=== PATIENT | female | born 1975 | race Caucasian/White ===

== ENCOUNTER 2024-02-13 12:48 | Outpatient (OUT) | payer MEDICAID, SELFPAY ==
[2024-02-13 13:13] LABS: Basophils Percent Auto 0.7 % (0.2-2.0); Eosinophils Absolute Auto 0.1 10^3/uL (0.0-0.7); Eosinophils Percent Auto 1.5 % (0.9-7.0); Hematocrit 42.2 % (36.0-48.0); Hemoglobin 14.2 g/dL (12.0-16.0); Immature Granulocytes Abs Auto 0.02 10^3/uL (0.00-0.03); Immature Granulocytes Pct Auto 0.3 % (0.0-0.5); Lymphocytes Absolute Auto 2.2 10^3/uL (1.2-3.8); Lymphocytes Percent Auto 36.7 % (20.5-60.0); Mean Corpuscular HGB Conc 33.6 g/dL (29.9-35.2); Mean Corpuscular Hemoglobin 28.8 pg (26.7-34.0); Mean Corpuscular Volume 85.6 fL (81.0-99.0); Mean Platelet Volume 10.1 fL (9.5-13.5); Monocytes Absolute Auto 0.3 10^3/uL (0.3-0.8); Monocytes Percent Auto 5.2 % (1.7-12.0); Neutrophils Absolute Auto 3.3 10^3/uL (1.4-6.5); Neutrophils Percent Auto 55.6 % (43.0-75.0); Platelet Count 321 10^3/uL (150-450); Red Blood Count 4.93 10^6/uL (4.20-5.40); Red Cell Distribution Width 13.2 % (11.0-15.0)
[2024-02-13 13:21] LABS: Estimated Average Glucose 117 mg/dL; Glycohemoglobin A1C 5.7 % (4.5-6.2)
[2024-02-13 13:41] LABS: Alanine Aminotransferase 19 U/L (14-59); Albumin Globulin Ratio 0.9; Albumin Level 3.7 g/dL (3.4-5.0); Alkaline Phosphatase 83 U/L (46-116); Anion Gap 12.1; Aspartate Amino Transferase 21 U/L (15-37); BUN Creatinine Ratio 11.6; Bilirubin Total 0.4 mg/dL (0.2-1.0); Calcium 9.1 mg/dL (8.5-10.1); Chloride 105 mmol/L (98-107); Chol HDL Ratio 3.9; Cholesterol 245 mg/dL (<=200); Estimated GFR (African America >60 (>=60 mL/min/1.73m^2); Estimated GFR (Non-African Ame >60 (>=60 mL/min/1.73m^2); Globulin 4.1 g/dL; Glucose 88 mg/dL (74-106); HDL Cholesterol 63 mg/dL (40-60); Potassium 4.1 mmol/L (3.5-5.1); Sodium 138 mmol/L (136-145); TSH W/ REFLEX FT4 1.547 uIU/mL (0.358-3.740); Total Protein 7.8 g/dL (6.4-8.2); Triglycerides 81 mg/dL (<=150); VLDL CHOLESTEROL 16.2 mg/dL
[2024-02-14 08:15] LABS: Vitamin B12 551 pg/mL (232-1245)
== END 2024-02-13 12:49 | disposition home or self-care (01) ==
LOC: LAB 12:53
DX: Z00.00 Encounter for general adult medical examination without abnormal findings (principal); R53.82 Chronic fatigue, unspecified
CPT/HCPCS: 36415; 80053; 80061; 82306; 82607; 83036; 84443; 85025

== ENCOUNTER 2025-01-20 12:47 | Outpatient (OUT) | payer MEDICAID, SELFPAY ==
--- OUTSIDE RECORDS SUMMARY | 2025-01-20 12:52 | XMS_ITS | CCD ---
Author Organization [facility] Inform ion Partnership [facility] Care Team Providers Care 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 Name Role Phone Christopher Basurto MD Primary Care Provider [phone] Leonard CANDY COOKER HELPER, Queenie Unavailable QUEENIE VALLE Attending Jalen VALLE, QUEENIE Attending QUEENIE Jefferson Referring MANUEL Aguayo Attending Unavailable NO PCP, NO PCP Primary Care Unavailable LAURE TAMAYO Attending Unavailable Bel Coburn DO Primary Care Provider Bel Coburn DO Attending Provider [phone] Allergies Allergy Classification Reported Allergen(s) Allergy Type Date of Onset Reaction(s) Facility (3 sources) Penicillins Drug Intolerance 4 Itching, Rash [facility] (4 sources) QUEtiapine; Translations: [QUETIAPINE] Drug Allergy 4 Anxiety, Dizziness, Headache, Photosensitivit y, Shortness of breath [facility] (1 source) Penicillin; Translations: [PENICILLIN G] Drug Allergy 4 [facility] Medications Current Medications Medication Drug Class(es) Dates Sig (Normalized) Sig (Original) ARIPiprazole 2 mg oral tablet (7 sources) Atypical Antipsychotic Start: 01-18-2024 take 1 tablet by mouth once daily ARIPiprazole (Abilify) 2 MG tablet Take 2 mg by mouth Daily 01/18/2024 Active busPIRone hydrochloride 10 mg oral tablet (8 sources) Start: 01-19-2025 take 1 tablet by mouth three times daily Buspirone 10 mg tablet Active 10 MG PO Three times daily January 19, 2025 12:00am Complies with drug therapy Start: 12-16-2023 take 1 tablet by oskar th in the morning, then take 1 tablet by mouth in the evening, then take 1 tablet by mouth at bedtime busPIRone (Buspar) 10 MG tablet Take 10 mg by mouth in the morning and 10 mg in the evening and 10 mg before bedtime. 12/16/2023 Active FLUoxetine 20 mg oral capsule (17 sources) Serotonin Reuptake Inhibitor Start: 01-19-2025 take 3 capsules by mouth once daily Fluoxetine (Prozac) 20 mg capsule Active 60 MG PO Daily January 19, 2025 12:00am Complies with drug therapy Start: 12-25-2023 End: 03-26-2024 take 1 capsule by mouth once daily FLUoxetine (PROzac) 20 MG capsule Indications: Anxiety and depression (CMS/HCC) Take 1 capsule (20 mg) by mouth Daily 90 capsule 03/27/2024 Active Start: 12-16-2023 End: 03-26-2024 take 1 capsule by mouth once daily FLUoxetine (PROzac) 40 MG capsule Indications: Anxiety and depression (CMS/HCC) Take 1 capsule (40 mg) by mouth Daily 90 capsule 03/27/2024 Active ibuprofen 800 mg oral tablet (1 source) Nonsteroidal Anti-inflammatory Drug Start: 01-19-2025 take 1 tablet by mouth three times daily Ibuprofen 800 mg tablet Active 800 MG PO Three times daily January 19, 2025 12:00am Complies with drug therapy melatonin 10 mg oral capsule (3 sources) Start: 01-19-2025 take 1 capsule by mouth once daily at bedtime as needed Melatonin 10 mg capsule Active 10 MG PO Daily at bedtime as needed January 19, 2025 12:00am Complies with drug therapy melatonin 10 MG tablet Take by mouth Active propranolol hydrochloride 10 mg oral tablet (1 source) beta-Adrenergic Ledy Start: 01-19-2025 take 1 tablet by mouth twice daily Propranolol 10 mg tablet Active 10 MG PO Twice daily January 19, 2025 12:00am Complies with drug therapy topiramate 50 mg oral tablet (2 sources) Start: 05-05-2024 take 1 tablet by mouth once daily topiramate 50 MG tablet Take 1 tablet by mouth Daily 05/05/2024 Active Problems Active Problems Problem Classification Problem Date Documented Date Episodic/Chronic Acute cerebrovascular disease (13 sources) Cerebrovascular accident; Translations: [Cerebral infarction, unspecified] 02-08-2024 Chronic Anxiety disorders (1 source) Mixed anxiety and depressive disorder; Translations: [Anxiety disorder, unspecified] 03-27-2024 Chronic Headache; including migraine (9 sources) Transformed migraine; Translations: [Intractable chronic migraine with aura and without status migrainosus (CMS/HCC)] Onset: 02-07-2024 02-07-2024 Chronic Malaise and fatigue (9 sources) Fatigue; Translations: [Chronic fatigue, unspecified] Onset: 02-07-2024 02-07-2024 Chronic Other connective tissue disease (1 source) Foot pain Onset: 01-06-2025 Episodic Other nutritional; endocrine; and metabolic disorders (2 sources) Abnormal weight gain; Translations: [Abnormal weight gain] 01-19-2025 Episodic Residual codes; unclassified (2 sources) Flushing; Translations: [Flushing] 01-19-2025 Episodic Sprains and strains (1 source) Sprain of unspecified ligament of left ankle, initial encounter; Translations: [Sprain of unspecified ligament of left ankle, initial encounter] Onset: 01-06-2025 Episodic Substance-related disorders (9 sources) Substance abuse; Translations: [Other psychoactive substance abuse, uncomplicated] 02-07-2024 Chronic Transient cerebral ischemia (11 sources) Transient cerebral ischemia; Translations: [Transient cerebral ischemic attack, unspecified] 02-08-2024 Chronic Unclassified (1 source) Chest Pain/Pressure Onset: 03-02-2024 Past or Other Problems Problem Classification Problem Date Documented Date Episodic/Chronic Cardiac and circulatory congenital anomalies (7 sources) H/O cardiac surgery; Translations: [Personal history of (corrected) congenital malformations of heart and circulatory system] Onset: 02-07-2024 02-07-2024 Episodic Nonspecific chest pain (2 sources) Chest pain, unspecified; Translations: [Chest pain] Onset: 03-02-2024 Episodic Other screening for suspected conditions (not mental disorders or infectious disease) (18 sources) Patient encounter status; Translations: [Encounter for screening mammogram for malignant neoplasm of breast] Onset: 02-07-2024 02-07-2024 Episodic Results Test Name Value Interpretation Reference Range Facil ity XR ANKLE LT MIN 3 VWSon 09-3 XR ANKLE LT MIN 3 VWS XR ANKLE LT MIN 3 VWS XR ANKLE LT MIN 3 VWS HISTORY: pain COMPARISON: None available at time of dictation. IMPRESSION: 1. No acute fracture or dislocation. 2. Small Ankle joint effusion. 3. Talar dome is preserved. 4. Ankle mortise is congruent. Finalized by Vaughn Quezada on 01/06/2025 12:34 PM Normal [facility] XR FOOT LT MIN 3 VWSon 01-06 XR FOOT LT MIN 3 VWS XR FOOT LT MIN 3 VWS History: pain Exam/Technique: AP, lateral and oblique. Comparison: None. Findings: Visualized alignment is appropriate. Joint spaces are maintained. No evidence of coalition. No evidence of acute abnormality or periosteal reaction. . IMPRESSION: Normal examination. Finalized by Jeremy Pérez MD on 01/06/2025 12:50 PM Normal [facility] CBC AND AUTO DIFFon 03-02-20 24 ABSOLUTE BASOPHIL 0.0 X10E9/L Normal 0.0-0.2 [facility] Comment on above: Performed By: #### C STAN VASQUES, 28470-2, 96059-1 #### [facility] ([id number]) [address] [place] [address] 98432 ABSOLUTE NEUTROPHIL 3.3 X10E9/L Normal 1.5-6.6 [facility] Comment on above: Performed By: #### C STAN VASQUES, 35777-3, 12095-9 #### [facility] ([id number]) [address] [place] [address] 94171 Basophils/100 WBC (Bld) 0.6 % Normal [facility] Comment on above: Performed By: #### C STAN VASQUES, 67288-7, 64315-6 #### [facility] ([id number]) [address] [place] [address] 28209 Eosinophils (Bld) [#/Vol] 0.1 10*3/uL Normal 0.0-0.4 [facility] Comment on above: Performed By: #### C STAN VASQUES, 74094-0, 71686-6 #### [facility] ([id number]) [address] [place] [address] 17283 Eosinophils/100 WBC (Bld) 1.3 % Normal [facility] Comment on above: Performed By: #### C LAYO, [facility], 62060-5, 73844-8 #### [facility] ([id number]) [address] [place] [address] 16628 Erythrocyte distribution width (RBC) [Ratio] 14.0 % Normal 11.5-15.0 [facility] Comment on above: Performed By: #### C LAYO, [facility], 34933-3, 56317-5 #### [facility] ([id number]) [address] [place] [address] 99076 Hematocrit (Bld) [Volume fraction] 40.0 % Normal 35-47 [facility] Comment on above: Performed By: #### C LAYO, [facility], 43017-1, 06604-5 #### [facility] ([id number]) [address] [place] [address] 49589 Hemoglobin (Bld) [Mass/Vol] 13.6 g/dL Normal 11.7-15.5 [facility] Comment on above: Performed By: #### Aleks VASQUES, CMP, 05673-9, 69434-4 #### [facility] ([id number]) [address] [place] [address] 18947 Lymphocytes (Bld) [#/Vol] 2.0 10*3/uL Normal 1.0-3.5 [facility] Comment on above: Performed By: #### Aleks VASQUES, CMP, 67069-0, 90056-1 #### [facility] ([id number]) [address] [place] [address] 58007 Lymphocytes/100 WBC (Bld) 34.9 % Normal [facility] Comment on above: Performed By: #### C LAYO, CMP, 61058-2, 26016-3 #### [facility] ([id number]) [address] [place] [address] 33070 MCH (RBC) [Entitic mass] 28.8 pg Normal 27-34 [facility] Comment on above: Performed By: #### C LAYO, CMP, 69032-6, 83905-8 #### [facility] ([id number]) [address] [place] [address] 86488 MCHC (RBC) [Mass/Vol] 34.0 g/dL Normal 32-36 [facility] Comment on above: Performed By: #### C LAYO, CMP, 33883-3, 14044-1 #### [facility] ([id number]) [address] [place] [address] 06842 MCV (RBC) [Entitic vol] 85 fL Normal 80-100 [facility] Comment on above: Performed By: #### C LAYO, CMP, 02911-9, 65091-0 #### [facility] ([id number]) [address] [place] [address] 84877 Monocytes (Bld) [#/Vol] 0.4 10*3/uL Normal 0-0.9 [facility] Comment on above: Performed By: #### C BCA, CMP, 29436-2, 17731-3 #### [facility] ([id number]) [address] [place] [address] 95010 Monocytes/100 WBC (Bld) 6.8 % Normal [facility] Comment on above: Performed By: #### C BCA, CMP, 54260-4, 21984-9 #### [facility] ([id number]) [address] [place] [address] 50475 Neutrophils/100 WBC (Bld) 56.4 % Normal [facility] Comment on above: Performed By: #### C BCA, CMP, 03098-5, 94562-6 #### [facility] ([id number]) [address] [place] [address] 18121 Platelet mean volume (Bld) [Entitic vol] 8.3 fL Normal 7-12 [facility] Comment on above: Performed By: #### C LAYO, CMP, 24749-8, 04950-2 #### [facility] ([id number]) [address] [place] [address] 89598 Platelets (Bld) [#/Vol] 341 10*3/uL Normal 150-450 [facility] Comment on above: Performed By: #### C BCA, CMP, 32488-3, 75304-3 #### [facility] ([id number]) [address] [place] [address] 58069 RBC COUNT 4.72 X10E12/L Normal 3.80-5.20 [facility] Comment on above: Performed By: #### C LAYO, CMP, 41481-0, 49817-6 #### [facility] ([id number]) [address] [place] [address] 87726 WBC (Bld) [#/Vol] 5.9 10*3/uL Normal 4.0-11.0 [facility] Comment on above: Performed By: #### C BCA, CMP, 15262-5, 77290-5 #### [facility] ([id number]) [address] [place] [address] 30102 COMPREHENSIVE METABOLIC PANE Kevin 03-02-2024 Albumin [Mass/Vol] 4.1 g/dL Normal 3.2-5.3 [facility] Comment on above: Performed By: #### C BCA, CMP, 48575-7, 09845-6 #### [facility] ([id number]) [address] [place] [address] ALP [Catalytic activity/Vol] 68 U/L Normal 39-130 [facility] Comment on above: Performed By: #### C BCA, CMP, 36841-0, 42879-3 #### [facility] ([id number]) [address] [place] [address] 09295 ALT [Catalytic activity/Vol] 17 U/L Normal 0-31 [facility] Comment on above: Performed By: #### C BCA, CMP, 38037-7, 47528-7 #### [facility] ([id number]) [address] [place] [address] 20621 Anion gap [Moles/Vol] 5 mmol/L Normal 5-15 [facility] Comment on above: Performed By: #### C LAYO, CMP, 37415-0, 00600-0 #### [facility] ([id number]) [address] [place] [address] [place] [address] AST [Catalytic activity/Vol] 23 U/L Normal 0-41 [facility] Comment on above: Performed By: #### C LYAO, CMP, 21691-2, 13098-9 #### [facility] ([id number]) [address] [place] [address] 31490 Bilirubin [Mass/Vol] 0.6 mg/dL Normal 0.3-1.2 [facility] Comment on above: Performed By: #### C BCA, CMP, 06305-3, 27331-6 #### [facility] ([id number]) [address] [place] [address] 30260 Calcium [Mass/Vol] 9.1 mg/dL Normal 8.5-10.5 [facility] Comment on above: Performed By: #### C BCA, CMP, 79460-1, 85192-5 #### [facility] ([id number]) [address] [place] [address] 99666 Chloride [Moles/Vol] 108 mmol/L Normal 98-109 [facility] Comment on above: Performed By: #### C STAN VASQUES, 06405-8, 87986-4 #### [facility] ([id number]) [address] [place] [address] 54765 CO2 [Moles/Vol] 21 mmol/L Low 22-32 [facility] Comment on above: Performed By: #### C STAN VASQUES, 44557-7, 66083-4 #### [facility] ([id number]) [address] [place] [address] 81934 Creatinine [Mass/Vol] 0.76 mg/dL Normal 0.40-1.00 [facility] Comment on above: Result Comment: METH OD TRACEABLE TO IDMS STANDARD Performed By: #### C STAN VASQUES, 61279-9, 38877-3 #### [facility] ([id number]) [address] [place] [address] 39632 eGFR (CKD-EPI) NON-RACE DEPENDENT >90 Normal >59 [facility] Comment on above: Result Comment: Reported eGFR is based on the CKD-EPI 2020 equation that does not use a race coefficient. Performed By: #### C STAN VASQUES, 22452-2, 75906-8 #### [facility] ([id number]) [address] [place] [address] 45529 Glucose [Mass/Vol] 88 mg/dL Normal 65-99 [facility] Comment on above: Performed By: #### C STAN VASQUES, 50710-7, 44035-5 #### [facility] ([id number]) [address] [place] [address] 71729 Potassium [Moles/Vol] 3.7 mmol/L Normal 3.5-5.0 [facility] Comment on above: Performed By: #### C STAN VASQUES, 86414-3, 20311-9 #### [facility] ([id number]) [address] [place] [address] 57077 Protein [Mass/Vol] 7.4 g/dL Normal 6.0-8.0 [facility] Comment on above: Performed By: #### C LAYO CMP, 95266-2, 58720-4 #### [facility] ([id number]) [address] [place] [address] 86240 Sodium [Moles/Vol] 134 mmol/L Normal 134-146 [facility] Comment on above: Performed By: #### C LAYO, CMP, 21651-1, 86988-0 #### [facility] ([id number]) [address] [place] [address] 24327 Urea nitrogen [Mass/Vol] 12 mg/dL Normal 5-23 [facility] Comment on above: Performed By: #### C LAYO, STAN, 99142-0, 60716-5 #### [facility] ([id number]) [address] [place] [address] 16371 Fibrin D-dimer DDU (PPP) [Ma ss/Vol]on 03-02-2024 D DIMER <150 Normal <255 [facility] Comment on above: Result Comment: Results <255 ng/mL DDU: The presence of a VTE can safely be excluded with a negative D-Dimer result and Wells score. A negative result doesn't exclude the possibility of DIC. The test be repeated along with other diagnostic tests if the patient's symptoms persist or worsen. [email or web address] Performed By: #### C LAYO, CMP, 22735-2, 99875-3 #### [facility] ([id number]) [address] [place] [address] 16733 Troponin I.cardiac High sens itivity method [Mass/Vol]on 03-02-2024 1 HOUR TROP I, HIGH SENSITIVITY 3 ng/L Normal <16 [facility] Comment on above: Performed By: #### 8 9579-7 #### [facility] ([id number]) [address] [place] [address] 94536 TROPONIN I, HIGH SENSITIVITY 3 ng/L Normal <16 [facility] Comment on above: Performed By: #### C BCA, CMP, 15358-0, 50496-2 #### [facility] ([id number]) [address] [place] [address] 35848 XR CHEST 2 VWSon 03-02-2024 XR CHEST 2 VWS XR CHEST 2 VWS XR CHEST 2 VWS Chest 2 views History: chest pain Comparison: None Impression: * No focal consolidation or pleural fluid. Grossly I cannot identify any mediastinal or hilar mass. No acute findings. Finalized by Vito Begum MD on 03/02/2024 1:01 PM Normal [facility] BI MAMMOGRAM SCREENING TOMOS YNTHESIS BILATERALon 02-20-2024 BI MAMMOGRAM SCREENING TOMOSYNTHESIS BILATERAL This is a summary report. The complete report is available in the patient's medical record. If you cannot access the medical record, please contact the sending organization for a detailed fax or copy. Examination: BI MAMMOGRAM SCREENING TOMOSYNTHESIS BILATERAL Clinical History: screening for breast cancer Technique: Screening digital mammography study of both breasts was performed with 2-D and 3-D tomosynthesis imaging. No prior study available for comparison. Findings: There is no evidence of dominant spiculated mass, grouped microcalcifications, or skin thickening which would be suggestive of malignancy. Mild scattered benign-appearing calcifications are noted bilaterally. A few benign-appearing nodular densities are noted bilaterally likely representing focal fibrocystic changes. IMPRESSION: Impression: No specific evidence of malignancy seen in either breast. BIRADS 2 - Benign DENSITY: The breasts are almost entirely fatty FOLLOW-UP: Routine Screening Mamm ELECTRONICALLY SIGNED BY: Merrill Adams M.D. Normal Not Available MLR HEMOGLOBIN A1Con 024 Glucose [Mass/Vol] 117 mg/dL [facility] HbA1c (Bld) [Mass fraction] 5.7 % 4.5 - 6.2 % [facility] Comment on above: ADA RECOMMENDED LIMI T 4.0 - 6.0 ADA THERAPEUTIC TARGET < 7.0 ACTION SUGGESTED > 7.0 [facility] Vital Signs Date Time Vital Sign Value Performing Clinician Brii reyes 01-19-2025 14:05-0400 Body height 167.64 cm Bel Almas DO Work Phone: [facility] 01-19-2025 14:05-0400 Body mass index (BMI) [Ratio] 32.1 kg/m2 Bel Almas DO Work Phone: [facility] 01-19-2025 14:05-0400 Body weight 90.26 kg Bel Almas DO Work Phone: [facility] 01-19-2025 14:05-0400 Diastolic blood pressure 66 mm[Hg] Bel Almas DO Work Phone: [facility] 01-19-2025 14:05-0400 Heart rate 67 /min Bel Almas DO Work Phone: [facility] 01-19-2025 14:05-0400 Respiratory rate 16 /min Bel Almas DO Work Phone: [facility] 01-19-2025 14:05-0400 SaO2% (BldA) [Mass fraction] 96 % Bel Almas DO Work Phone: [facility] 01-19-2025 14:05-0400 Systolic blood pressure 134 mm[Hg] Bel Almas DO Work Phone: [facility] 05-12-2024 14:51-0500 Body height 167.6 cm Queenie Matosk CANDY COOKER HELPER Work Phone: [facility] 05-12-2024 14:51-0500 Body mass index (BMI) [Ratio] 31.25 kg/m2 Queenie Valle CANDY COOKER HELPER Work Phone: [facility] 05-12-2024 14:51-0500 Body temperature 97.59 [degF] Queenie Valle CANDY COOKER HELPER Work Phone: [facility] 05-12-2024 14:51-0500 Body weight 87.82 kg Queenie Valle CANDY COOKER HELPER Work Phone: [facility] 05-12-2024 14:51-0500 Diastolic blood pressure 72 mm[Hg] Queenie Valle CANDY COOKER HELPER Work Phone: [facility] 05-12-2024 14:51-0500 Heart rate 64 /min Queenie Valle CANDY COOKER HELPER Work Phone: [facility] 05-12-2024 14:51-0500 Respiratory rate 16 /min Queenie Valle CANDY COOKER HELPER Work Phone: [facility] 05-12-2024 14:51-0500 SaO2% (BldA) [Mass fraction] 97 % Queenie Valle CANDY COOKER HELPER Work Phone: [facility] 05-12-2024 14:51-0500 Systolic blood pressure 110 mm[Hg] Queenie Valle CANDY COOKER HELPER Work Phone: [facility] 02-07-2024 15:23-0400 Body height 167.6 cm Queenie Valle CANDY COOKER HELPER Work Phone: [facility] 02-07-2024 15:23-0400 Body mass index (BMI) [Ratio] 30.67 kg/m2 Queenie Valle CANDY COOKER HELPER Work Phone: [facility] 02-07-2024 15:23-0400 Body temperature 96.8 [degF] Queenie Valle CANDY COOKER HELPER Work Phone: [facility] 02-07-2024 15:23-0400 Body weight 86.18 kg Queenie Valle CANDY COOKER HELPER Work Phone: [facility] 02-07-2024 15:23-0400 Diastolic blood pressure 84 mm[Hg] Queenie Valle CANDY COOKER HELPER Work Phone: [facility] 02-07-2024 15:23-0400 Heart rate 74 /min Queenie Valle CANDY COOKER HELPER Work Phone: [facility] 02-07-2024 15:23-0400 Respiratory rate 16 /min Queenie Valle CANDY COOKER HELPER Work Phone: [facility] 02-07-2024 15:23-0400 SaO2% (BldA) [Mass fraction] 96 % Queenie Valle CANDY COOKER HELPER Work Phone: [facility] 02-07-2024 15:23-0400 Systolic blood pressure 118 mm[Hg] Queenie Valle CANDY COOKER HELPER Work Phone: [facility] Healthcare Encounters Encounter Date Encounter Type Care Provider Facility Start: 01-19-2025 End: 01-19-2025 ambulatory Bel Coburn DO Work Phone: [facility] Work Phone: Start: 01-19-2025 End: 01-19-2025 Patient encounter procedure Bel Coburn DO -[facility] Work Phone: Start: 01-06-2025 End: 01-06-2025 Emergency department patient visit NO PCP NO PCP [facility] Start: 05-12-2024 End: 05-12-2024 Office outpatient visit 10 minutes Queenie Valle CANDY COOKER HELPER Work Phone: [facility] Comment on above: Cerebrovascular acci dent (CVA), unspecified mechanism (CMS/HCC) (Primary Dx) Start: 05-12-2024 End: 05-12-2024 ambulatory QUEENIE VALLE Not Available Start: 05-12-2024 End: 05-12-2024 Bamboo flowsheet Queenie Valle CANDY COOKER HELPER Work Phone: [facility] Start: 05-12-2024 End: 02-03-2025 Bamboo flowsheet Queenie Valle CANDY COOKER HELPER Work Phone: [facility] Start: 03-26-2024 End: 03-27-2024 Refill Fernanda Hood MA [facility] Comment on above: Anxiety and depressi on (CMS/HCC) (Primary Dx) Start: 03-02-2024 End: 03-02-2024 Emergency department patient visit MANUEL Maxi [facility] Start: 02-20-2024 End: 02-20-2024 ambulatory QUEENIE VALLE Not Available Start: 02-13-2024 End: 02-13-2024 Clinisync Result Encounter Queenie Valenzuelazpatrick CANDY COOKER HELPER Work Phone: [facility] Unsolicited Start: 02-13-2024 End: 02-13-2024 Clinisync Result Encounter Queenie Vaughntrick CANDY COOKER HELPER Work Phone: [facility] Unsolicited Start: 02-07-2024 End: 02-07-2024 Initial preventive medicine new patient 40-64yrs Queenie Vaughntrick CANDY COOKER HELPER Work Phone: [facility] Comment on above: Substance abuse (CMS /HCC) (Primary Dx); Encounter for adult wellness visit; Encounter for screening mammogram for malignant neoplasm of breast; Screening for colon cancer; Chronic fatigue; Cerebrovascular accident (CVA), unspecified mechanism (CMS/HCC); TIA (transient ischemic attack); Intractable chronic migraine with aura and without status migrainosus (CMS/HCC) Start: 02-07-2024 End: 02-07-2024 ambulatory QUEENIE VALLE Not Available Start: 02-07-2024 End: 02-07-2024 Bamboo flowsheet Queenie Valle CANDY COOKER HELPER Work Phone: [facility] Start: 02-07-2024 End: 02-07-2024 Bamboo flowsheet Queenie Valle CANDY COOKER HELPER Work Phone: [facility] Start: 02-07-2024 End: 02-07-2024 Patient encounter status Queenie Valle CANDY COOKER HELPER Work Phone: [facility] Work Phone: Procedures Date Procedure Procedure Detail Performing Clinician Start: 02-20-2024 Mammography Fernanda kerns MA Start: 02-13-2024 MLR HEMOGLOBIN A1C Marielos Valle [employer]ANDY COOKER HELPER Work Phone: Plan of Treatment Date Care Activity Detail Author Start: 03-12-2027 Screening for malign ant neoplasm of colon [facility] Start: 02-19-2025 Screening for malign ant neoplasm of breast Mammogram [facility] Start: 10-06-2024 Influenza vaccination Influenza Vacc ine (#1) [facility] Comment on above: Postponed from 12/08 (Patient Refused) Start: 08-14-2024 End: 08-14-2024 Patient encounter procedure 08/14/2024 2:30 PM EDT Office Visit [facility] [address] [place] [phone] Queenie Valle NP [address] [place] [phone] [facility] Start: 05-12-2024 End: 05-12-2024 Patient encounter procedure [facility] Comment on above: Arrived Start: 02-20-2024 End: 02-20-2024 Professional / ancillary services management 02/20/2024 3:00 PM EST Ancillary Procedure [facility] [address] [place] [phone] [facility] Start: 02-07-2024 End: 02-07-2024 Patient encounter procedure 02/07/2024 3:30 PM EDT Office Visit [facility] [address] [place] [phone] Queenie Valle NP [address] [place] [phone] Arrived [facility] Comment on above: Arrived Start: 02-07-2024 End: 02-06-2025 25-hydroxyvitamin D3 [Mass/volume] in Serum or Plasma Vitamin D 25 hydroxy Lab Routine Chronic fatigue Expected: 02/07/2024 (Approximate), Expires: 02/06/2025 [facility] Comment on above: Expected: 02/07/2024 (Approximate), Expires: 02/06/2025 Start: 02-07-2024 End: 02-06-2025 CBC W Auto Differential panel - Blood CBC and differential Lab Routine Encounter for adult wellness visit Expected: 02/07/2024 (Approximate), Expires: 02/06/2025 [facility] Comment on above: Expected: 02/07/2024 (Approximate), Expires: 02/06/2025 Start: 02-07-2024 End: 02-06-2025 Cobalamin (Vitamin B12) [Mass/volume] in Serum or Plasma Vitamin B12 Lab Routine Chronic fatigue Expected: 02/07/2024 (Approximate), Expires: 02/06/2025 [facility] Comment on above: Expected: 02/07/2024 (Approximate), Expires: 02/06/2025 Start: 02-07-2024 End: 02-06-2025 Comprehensive metabolic 2000 panel - Serum or Plasma Comprehensive metabolic panel Lab Routine Encounter for adult wellness visit Expected: 02/07/2024 (Approximate), Expires: 02/06/2025 [facility] Comment on above: Expected: 02/07/2024 (Approximate), Expires: 02/06/2025 Start: 02-07-2024 End: 02-06-2025 Hemoglobin A1c/Hemoglobin.total in Blood Hemoglobin A1c Lab Routine Encounter for adult wellness visit Expected: 02/07/2024 (Approximate), Expires: 02/06/2025 [facility] Comment on above: Expected: 02/07/2024 (Approximate), Expires: 02/06/2025 Start: 02-07-2024 End: 02-06-2025 Lipid 1996 panel - Serum or Plasma Lipid panel Lab Routine Encounter for adult wellness visit Expected: 02/07/2024 (Approximate), Expires: 02/06/2025 [facility] Comment on above: Expected: 02/07/2024 (Approximate), Expires: 02/06/2025 Start: 02-07-2024 End: 04-08-2025 MG Breast - bilateral Screening Bilateral screening mammogram Imaging Routine Encounter for screening mammogram for malignant neoplasm of breast Expected: 02/07/2024, Expires: 04/08/2025 [facility] Comment on above: Expected: 02/07/2024 , Expires: 04/08/2025 Start: 02-07-2024 End: 02-06-2025 Noninvasive colorectal cancer DNA and occult blood screening [Presence] in Stool Cologuard colon cancer screening Lab Routine Screening for colon cancer Expected: 02/07/2024 (Approximate), Expires: 02/06/2025 [facility] Comment on above: Expected: 02/07/2024 (Approximate), Expires: 02/06/2025 Start: 02-07-2024 End: 02-06-2025 TSH W/REFLEX TO FT4 TSH W/REFLEX TO FT4 Lab Routine Encounter for adult wellness visit Expected: 02/07/2024 (Approximate), Expires: 02/06/2025 [facility] Work Phone: Comment on above: Expected: 02/07/2024 (Approximate), Expires: 02/06/2025 Start: 12-09-2023 Influenza vaccination Influenza Vacc ine (#1) [facility] Start: 2015 Screening for malign ant neoplasm of breast Mammogram [facility] Start: 10-25-2005 Screening for malign ant neoplasm of cervix [facility] Start: 10-25-1996 Screening for malign ant neoplasm of cervix Pap Smear [facility] Start: 1975 Screening for malign ant neoplasm of colon [facility] Comprehensive metabo lic 2000 panel - Serum or Plasma [facility] Estradiol (E2) [Mass/volume] in Serum or Plasma [facility] Progesterone [Mass/volume] in Serum or Plasma [facility] Payers Date Payer Category Payer Medicaid [employer] [facility] MEDICAID [place] [id number] 2023 Medicaid [id number] 1975 Unknown [id number] 1975 Unknown [id number] 1975 Unknown [id number] 1975 Unknown [id number] 1975 Unknown [id number] Social History Date Type Detail Facility [facility] consumption [facility] Start: 1975 Sex assigned at Not on file [facility] Start: 02-07-2024 End: 05-09-2024 Gender identity Not on file [facility] Start: 02-07-2024 End: 01-19-2025 Tobacco smoking status [facility] Never smoked tobacco [facility] Start: 02-07-2024 Tobacco use and exposure Smokeless tobacco non-user [facility] Start: 02-07-2024 End: 05-12-2024 Alcoholic beverage intake Ex-drinker (finding) [facility] Start: 02-07-2024 End: 05-09-2024 History of Social function [facility] How often do you nee d to have someone help you when you read instructions, pamphlets, or other written material from your doctor or pharmacy [SILS] Never [facility] Do you belong to any clubs or organizations such as amish groups, unions, fraternal or athletic groups, or school groups? Yes [facility] Are you now , , , , never or living with a partner? [facility] How often to you hav e a drink containing alcohol? Never [facility] How hard is it for y ou to pay for the very basics like food, housing, medical care, and heating Somewhat hard [facility] Do you feel stress - tense, restless, nervous, or anxious, or unable to sleep at night because your mind is troubled all the time - these days [OSQ] Rather much [facility] (I/We) worried wheth er (my/our) food would run out before (I/we) got money to buy more. Never true [facility] In the past 12 month s, was there a time when you were not able to pay the mortgage or rent on time? No [facility] Sex Female (finding) [facility] Start: 1975 Sex Assigned At Female [facility] Clinical Notes 02-07-2024 to 05-12-2024 Queenie Valle NP - 05/12/2024 3:23 PM Suleiman Valle NP - 05/12/2024 3:00 PM ESTPatient InstructionsTelephone Encounter - Fernanda Hood MA - 03/26/2024 10:22 AM EST Note Date & Type Note Facility 05-12-2024 History of Presen t illness Narrative Associated Problem(s): Stroke (CMS/HCC) Was scheduled to see Dr. Valiente, but previous physician did not send MRI; Rescheduled her appt. States she will call to reschedule appt soon. Images from the original note were not included. Subjective Patient ID: Sonja Briceno is a 48 y.o. female who presents for Follow-up. HPI Hx of CVA: Was scheduled to see Dr. Valiente, but previous physician did not send MRI; Rescheduled her appt. States she will call to reschedule appt soon. Reports she is sleeping better since last OV. 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 Has not made an appt with an MASTER TAX ADVISOR yet- but plans to very soon. Was seen at Urgent care for shingles 1 month ago. Was treated with Valacyclovir. Reports has since cleared. Offers no concerns or complaints today. Review of Systems Constitutional: Negative for activity change, appetite change, chills, fatigue, fever, night sweats and unexpected weight change. HENT: Negative for congestion, ear pain, rhinorrhea, sinus pressure, sinus pain, sore throat, trouble swallowing and voice change. Eyes: Negative for discharge and visual disturbance. Respiratory: Negative for chest tightness, shortness of breath and wheezing. Cardiovascular: Negative for chest pain, palpitations and leg swelling. Gastrointestinal: Negative for abdominal distention, abdominal pain, blood in stool, constipation, diarrhea, nausea and vomiting. Genitourinary: Negative for difficulty urinating, dysuria, flank pain, hematuria and pelvic pain. Musculoskeletal: Negative for arthralgias, joint swelling and neck pain. Skin: Negative for rash and wound. Neurological: Negative for dizziness, tremors, syncope, weakness, light-headedness, numbness and headaches. Psychiatric/Behavioral: Negative for sleep disturbance and suicidal ideas. The patient is not nervous/anxious. Hematological: Does not bruise/bleed easily. Endocrine: Negative for cold intolerance, heat intolerance, polydipsia, polyphagia and polyuria. Objective Physical Exam Vitals reviewed. Constitutional: Appearance: Normal appearance. HENT: Right Ear: Tympanic membrane normal. Left Ear: Tympanic membrane normal. Nose: Nose normal. Mouth/Throat: Mouth: Mucous membranes are moist. Pharynx: Oropharynx is clear. Eyes: Pupils: Pupils are equal, round, and reactive to light. Cardiovascular: Rate and Rhythm: Normal rate and regular rhythm. Pulses: Normal pulses. Heart sounds: Normal heart sounds. Pulmonary: Effort: Pulmonary effort is normal. Breath sounds: Normal breath sounds. Abdominal: General: Abdomen is flat. Bowel sounds are normal. Palpations: Abdomen is soft. Musculoskeletal: General: Normal range of motion. Skin: General: Skin is warm and dry. Capillary Refill: Capillary refill takes less than 2 seconds. Neurological: Mental Status: She is alert and oriented to person, place, and time. Assessment/Plan Problem List Items Addressed This Visit Stroke ([facility]) - Primary Was scheduled to see Dr. Valiente, but previous physician did not send MRI; Rescheduled her appt. States she will call to reschedule appt soon. documented in this encounter [facility] 05-12-2024 Instructions Queenie Valle NP - 05/12/2024 3:[address] Valiente's office and get an appointment scheduled. Call if you need anything@! documented in this encounter [facility] 03-26-2024 Telephone encount er Note GORDON:02/07/2024 NOV:05/12/2024 [facility] 03-26-2024 Miscellaneous Notes Formattin g of this note might be different from the original. GORDON:02/07/2024 NOV:05/12/2024 documented in this encounter [facility] 02-11-2024 History of Presen t illness Narrative Associated Problem(s): Encounter for adult wellness visit I have reviewed Ht/Wt/BMI, I have reviewed recommended vaccines for patient's age, as well as all recommended screenings I have reviewed available care everywhere notes as well. I have recommended eating a balanced diet, as well as activity as chronic conditions allow It is recommended that the patient have a yearly eye exam, as well as twice a year dental exams Fu in this office for wellness on a yearly basis Diet: Eat three meals per day. Breakfast, lunch, and dinner. Avoid snacking. Avoid eating after 5/6 pm. Daily protein GOAL 35% of your intake; 30g per meal. Daily calorie GOAL 1,800-2,000 per day. Consider tracking your food intake on MyFtinessPal or LoseIt Water: Increase water intake; GOAL 64-80oz of water per day. Exercise: Increase activity. GOAL 30 minutes, 5 days per week. START SLOW. Start with 5 minutes, 5 days per week. Then increase to 10 days, 5 days per week. Continue to increase until you reach the goal. Increase steps; GOAL 10,000 steps per day. Be sure to get adequate sleep; GOAL 6-8 hours of sleep per night. Associated Problem(s): Substance abuse ([facility]) Currently in recovery, states she has been sober for 2 years. Had an overdose 2 years ago and developed rhabdomyolysis. States she has never felt well since. Chronic fatigue. Images from the original note were not included. Subjective Patient ID: Sonja Briceno is a 48 y.o. female who presents for [facility]. HPI Specialists: [facility] Lives at home with Daughter, Son In Law, Grandson. Enjoys walking, jounraling, art, spending time with family. Diet: mostly home cooked meals. Moderate protein and vegtebales. Water: 84 ounces per day Caffeine: 12-24 ounces per day Sleep: 6 hours per night. Broken sleep. Wakes frequently, cannot stay asleep. Headaches, has been on topamax for 2 months. Was following with neurology after CVA. States there were lesions on her brain on MRI. Did sign records release- will review. Send referral to Neurology. Review of Systems Constitutional: Negative for activity change, appetite change, chills, diaphoresis, fatigue, fever and unexpected weight change. HENT: Negative for congestion, ear pain, rhinorrhea, sinus pressure, sinus pain, sneezing, sore throat, trouble swallowing and voice change. Eyes: Negative for visual disturbance. Respiratory: Negative for cough, chest tightness, shortness of breath and wheezing. Cardiovascular: Negative for chest pain, palpitations and leg swelling. Gastrointestinal: Negative for abdominal distention, abdominal pain, blood in stool, constipation, diarrhea and vomiting. Genitourinary: Negative for decreased urine volume, dysuria, flank pain, frequency, hematuria and urgency. Musculoskeletal: Negative for arthralgias, gait problem, joint swelling and myalgias. Skin: Negative for rash. Neurological: Negative for dizziness, tremors, syncope, weakness, light-headedness and headaches. Psychiatric/Behavioral: Negative for decreased concentration and suicidal ideas. The patient is not nervous/anxious. Hematological: Does not bruise/bleed easily. Endocrine: Negative for cold intolerance, heat intolerance, polydipsia, polyphagia and polyuria. Objective Physical Exam Vitals reviewed. Constitutional: Appearance: Normal appearance. HENT: Head: Normocephalic and atraumatic. Right Ear: Tympanic membrane normal. Left Ear: Tympanic membrane normal. Nose: Nose normal. Mouth/Throat: Mouth: Mucous membranes are moist. Pharynx: Oropharynx is clear. Eyes: Pupils: Pupils are equal, round, and reactive to light. Cardiovascular: Rate and Rhythm: Normal rate and regular rhythm. Pulses: Normal pulses. Heart sounds: Normal heart sounds. Pulmonary: Effort: Pulmonary effort is normal. Breath sounds: Normal breath sounds. Abdominal: General: Abdomen is flat. Bowel sounds are normal. Palpations: Abdomen is soft. Musculoskeletal: General: Normal range of motion. Cervical back: Normal range of motion. Skin: General: Skin is warm and dry. Capillary Refill: Capillary refill takes less than 2 seconds. Neurological: General: No focal deficit present. Mental Status: She is alert and oriented to person, place, and time. Psychiatric: Mood and Affect: Mood normal. Behavior: Behavior normal. Assessment/Plan Problem List Items Addressed This Visit Encounter for adult wellness visit I have reviewed Ht/Wt/BMI, I have reviewed recommended vaccines for patient's age, as well as all recommended screenings I have reviewed available care everywhere notes as well. I have recommended eating a balanced diet, as well as activity as chronic conditions allow It is recommended that the patient have a yearly eye exam, as well as twice a year dental exams Fu in this office for wellness on a yearly basis Diet: Eat three meals per day. Breakfast, lunch, and dinner. Avoid snacking. Avoid eating after 5/6 pm. Daily protein GOAL 35% of your intake; 30g per meal. Daily calorie GOAL 1,800-2,000 per day. Consider tracking your food intake on MyFtinessPal or LoseIt Water: Increase water intake; GOAL 64-80oz of water per day. Exercise: Increase activity. GOAL 30 minutes, 5 days per week. START SLOW. Start with 5 minutes, 5 days per week. Then increase to 10 days, 5 days per week. Continue to increase until you reach the goal. Increase steps; GOAL 10,000 steps per day. Be sure to get adequate sleep; GOAL 6-8 hours of sleep per night. 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 Had an overdose 2 years ago and developed rhabdomyolysis. States she has never felt well since. Chronic fatigue. Chronic fatigue Relevant Orders Vitamin D 25 hydroxy Vitamin B12 Encounter for screening mammogram for malignant neoplasm of breast Relevant Orders Bilateral screening mammogram Screening for colon cancer Relevant Orders Cologuard colon cancer screening Migraines ([facility]) documented in this encounter [facility] 02-07-2024 Instructions Queenie Valle NP - 02/07/2024 3:30 PM EDT FASTING labs ordered. Nothing to eat or drink for 12 hours prior to blood draw. Water and black coffee ok. Referral sent to Neurology, Dr. Echeverria- they will call you. If you don't hear from them in 2 weeks, call my office! INCREASE your cardiovascular ACTIVITY; GOAL 150 minutes per week. AVOID eating less than 2-4 hours before bedtime. AVOID all electronics for 2 hours prior to bedtime. Bed is for SLEEP ONLY. AVOID excessive alcohol intake. AVOID caffeine after 12:00pm. Go to bed when you are tired. If you are not tired that night, push the time back by 30 minutes the next night. Continue to do so until you are able to fall asleep without difficulty. If you wake up in the middle of the night, DO NOT LAY THERE FOR LONGER THAN 40 MINUTES. Once you are up, YOU ARE UP FOR THE DAY. AVOID napping. Get a Lavender diffuser in your bedroom. Magnesium Glycinate 500-1,000mg about 30-60 minutes before bedtime. Brand: Innate Melatonin 5mg-10mg 30 minutes before bed. Brand: Any brand, but once you select one stick with it. documented in this encounter [facility] Evaluation note Diagnosis Substance abuse (CMS/HCC)- Primary Other, mixed, or unspecified nondependent drug abuse, unspecified Encounter for adult wellness visit Encounter for screening mammogram for malignant neoplasm of breast Screening for colon cancer Special screening for malignant neoplasms, colon Chronic fatigue Other malaise and fatigue Cerebrovascular accident (CVA), unspecified mechanism (CMS/HCC) TIA (transient ischemic attack) Unspecified transient cerebral ischemia Intractable chronic migraine with aura and without status migrainosus (CMS/HCC) [facility] Diagnosis Substance abuse (CMS/HCC)- Primary Other, mixed, or unspecified nondependent drug abuse, unspecified Encounter for adult wellness visit Encounter for screening mammogram for malignant neoplasm of breast Screening for colon cancer Special screening for malignant neoplasms, colon Chronic fatigue Other malaise and fatigue Cerebrovascular accident (CVA), unspecified mechanism (CMS/HCC) TIA (transient ischemic attack) Unspecified transient cerebral ischemia Intractable chronic migraine with aura and without status migrainosus (CMS/HCC) Anxiety and depression (CMS/HCC)- Primary [facility]* Diagnosis Substance abuse (CMS/HCC)- Primary Other, mixed, or unspecified nondependent drug abuse, unspecified Encounter for adult wellness visit Encounter for screening mammogram for malignant neoplasm of breast Screening for colon cancer Special screening for malignant neoplasms, colon Chronic fatigue Other malaise and fatigue Cerebrovascular accident (CVA), unspecified mechanism (CMS/HCC) TIA (transient ischemic attack) Unspecified transient cerebral ischemia Intractable chronic migraine with aura and without status migrainosus (CMS/HCC) Cerebrovascular accident (CVA), unspecified mechanism (CMS/HCC)- Primary [facility]* Diagnosis Onset Date Resolution Status Admit Date Hot flashes acute January 19, 2025 1:54pm Weight gain, abnormal acute Oct cahnel 2024 1:54pm [facility] Work Phone: Reason for referral (narrative)No reason for referral [facility] Work Phone: Summary Purpose Family History Relationship Condition Age at Onset Recorded Date/T silviano maternal grandmother Malignant neoplasm Unknown father Heart disease Unknown mother Hypertension Unknown Advance Directives Advance Directive Response Recorded Date/ Time Advance Directives No January 15, 2025 1:57pm Chief Complaint and Reason for Visit Chief Complaint Admit Date losing hair and gaining weight January 072024 1:54pm Reason for Visit Admit Date Hot flashes January 19, 2025 1 :54pm Weight gain, abnormal January 19, 2025 1:54pm Additional Source Comments Care Teams (unrecognized sec tion and content) 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 Relationship Specialty Start Date End Date Christopher Basurto MD [address] [place] [phone] PCP - General Family Medicine 01/16/24 Queenie Valle NP [address] [place] [phone] Nurse Practitioner Family Medicine 01/16/24 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 Relationship Specialty Start Date End Date Christopher Basurto MD [address] [place] [phone] PCP - General Family Medicine 01/16/24 Queenie Valle NP [address] [place] [phone] Nurse Practitioner Family Medicine 01/16/24 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 Relationship Specialty Start Date End Date Christopher Basurto MD [address] [place] [phone] PCP - General Family Medicine 01/16/24 Queenie Valle NP [address] [place] [address] Nurse Practitioner Family Medicine 01/16/24 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 Relationship Specialty Start Date End Date Christopher Basurto MD [address] [place] [phone] PCP - General Family Medicine 01/16/24 Queenie Valle NP [address] [place] [address] Nurse Practitioner Family Medicine 01/16/24 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 Relationship Specialty Start Date End Date Christopher Basurto MD [address] [place] [phone] PCP - General Family Medicine 01/16/24 Queenie Valle NP [address] [place] [address] Nurse Practitioner Family Medicine 01/16/24 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 Relationship Specialty Start Date End Date Christopher Basurto MD [address] [place] [phone] PCP - General Family Medicine 01/16/24 Queenie Valle NP [address] [place] [address] Nurse Practitioner Family Medicine 01/16/24 Team Status: Active Member Role Status Dates Bel Coburn DO Primary Care Provider Active Team Status: Inactive Member Role Status Dates Bel Coburn DO Primary Care Provider Active S tart: January 19, 2025 End: January 19, 2025 Bel Coburn DO Attending Provider Active Star t: January 19, 2025 End: January 19, 2025 Reason for Visit (unrecogniz ed section and content) Reason Comments Establish Care Reason Onset Date Comments Med Refill 03/26/2024 Reason Comments Follow-up INFORMATION SOURCE (unrecogn ized section and content) DATE CREATED AUTHOR 05/13/2024 [facility] DATE CREATED AUTHOR AUTHOR'S ORGANIZ ATION 01/11/2025 [facility] Goals (unrecognized section and content) Goals may be documented in a n alternate section FOR RECORDS PERTAINING TO PATIENTS WHO ARE OR HAVE BEEN ENROLLED IN A CHEMICAL DEPENDENCY/SUBSTANCEABUSE PROGRAM, SOME INFORMATION MAY BE OMITTED. This clinical summary was aggregated from multiple sources. Caution should be exercised in using it in the provision of clinical care. This summary normalizes information from multiple sources, and as a consequence, information in this document may materially change the coding, format and clinical context of patient data. In addition, data may be omitted in some cases. CLINICAL DECISIONS SHOULD BE BASED ON THE PRIMARY CLINICAL RECORDS. [employer] [facility]. provides no warranty or guarantee of the accuracy or completeness of information in this document.
[2025-01-20 13:04] LABS: Hematocrit 43.0 % (36.0-48.0); Hemoglobin 14.2 g/dL (12.0-16.0); Immature Granulocytes Abs Auto 0.01 10^3/uL (0.00-0.03); Immature Granulocytes Pct Auto 0.2 % (0.0-0.5); Lymphocytes Absolute Auto 2.1 10^3/uL (1.2-3.8); Mean Corpuscular HGB Conc 33.0 g/dL (29.9-35.2); Mean Corpuscular Hemoglobin 28.5 pg (26.7-34.0); Mean Corpuscular Volume 86.2 fL (81.0-99.0); Platelet Count 352 10^3/uL (150-450); Red Blood Count 4.99 10^6/uL (4.20-5.40); White Blood Count 6.1 10^3/uL (4.0-11.0)
[2025-01-20 13:45] LABS: Alanine Aminotransferase 38 U/L (14-59); Albumin Globulin Ratio 0.9; Albumin Level 3.9 g/dL (3.4-5.0); Alkaline Phosphatase 105 U/L (46-116); Anion Gap 14.8; Aspartate Amino Transferase 27 U/L (15-37); Blood Urea Nitrogen 10.0 mg/dL (7.0-18.0); Calcium 9.2 mg/dL (8.5-10.1); Carbon Dioxide 28.9 mmol/L (21.0-32.0); Chloride 103 mmol/L (98-107); Estimated GFR (African America >60 (>=60 mL/min/1.73m^2); Estimated GFR (Non-African Ame >60 (>=60 mL/min/1.73m^2); Globulin 4.4 g/dL; Glucose 83 mg/dL (74-106); Potassium 4.7 mmol/L (3.5-5.1); Sodium 142 mmol/L (136-145); Thyroid Stimulating Hormone 0.728 uIU/mL (0.358-3.740); Total Protein 8.3 g/dL (6.4-8.2)
[2025-01-21 08:09] LABS: FSH 87.9 mIU/mL (.)
== END 2025-01-20 12:48 | disposition home or self-care (01) ==
LOC: LAB 12:49
PROVIDERS: PCP Family Medicine; Visit Provider Family Medicine
DX: R23.2 Flushing (principal); R63.5 Abnormal weight gain
CPT/HCPCS: 36415; 80053; 82670; 83001; 84144; 84439; 84443; 85025